=== PATIENT | female | born 1960 | race Caucasian/White ===

== ENCOUNTER → 2021-05-09 | Outpatient (CLI) | payer OTHER ==
--- NOTE | 2021-05-09 17:03 | RAD ---
XR RIBS MIN 3 VIEWS LT W/PA CHEST 05/09/2021 3:17 PM INDICATION: Fall COMPARISON: None available TECHNIQUE: Portable frontal view of the chest is provided. FINDINGS: The cardiomediastinal silhouette is within normal limits. Lungs are clear. There are no significant pleural effusions. There is no pulmonary vascular congestion. No pneumothora x. No suspicious osseous abnormality. No acutely displaced left-sided rib fracture is identified. IMPRESSION: There is no acute cardiopulmonary process. No acutely displaced left-sided rib fracture. Electronically signed by: Lynne Ruelas MD (05/09/2021 5:00 PM) [id number]
== END ==
LOC: RAD 15:09
PROVIDERS: ATTEND Family Medicine
DX: R07.81 Pleurodynia (principal)
CPT/HCPCS: 71101

== ENCOUNTER → 2021-10-25 | Outpatient (CLI) | payer OTHER ==
--- NOTE | 2021-10-28 11:16 | RAD ---
XR BILATERAL HIP (WITH OR WITHOUT PELVIS) 2 VIEWS_RIGHT History: Reason: RIGHT HIP PAIN, NO KNOWN INJURY, PAIN WORSENING / Spl. Instructions: / History: Technique: AP view the pelvis and 2 additional views of the right hip. Comparison: None. Findings: No dislocation. No acute fracture. Minimal degenerative changes within the hips. Heterotopic ossifica tion adjacent to the left acetabulum. Impression: 1. No acute osseous abnormality. Electronically signed by: Afshin Sheridan DO (10/28/2021 11:13 AM) [id number]
== END ==
LOC: RAD 16:08
PROVIDERS: ATTEND Specialist
DX: M25.551 Pain in right hip (principal)
CPT/HCPCS: 73502